=== PATIENT | female | born 1955 | race Caucasian/White ===

== ENCOUNTER 2016-07-23 11:28 | Outpatient (CLI) | payer BC ==
[~2016-07-23] VITALS: Ht 177.8 cm; Wt 81.0 kg
[~2016-07-23 11:28] MED LIST: CALCIUM + D 6001 TA1 PO; CALCIUM600 M1 PO; CARDI-OMEGA1000 MG PO; FASTIN30 MG PO; FOLIC ACID 11 MG/TA1 PO; LIPITOR 40MG TA40 MG PO; METHOTREXA2.5 MG/TAB PO; PRAVACHOL 40MG40 MG PO; PRAVASTATIN20 MG PO; PRILOSEC 20MG20 MG PO; PROBIOTIC FORMU1 CAP PO; REMICADE V100 MG/VIA; REMICADE V100 MG/VIA IV; SAVELLA12.5 MG PO; SYNTHROID 0.0.025 MG PO; SYNTHROID0.05 MG/TA PO; VITAMIN D1000 IU PO
[2016-07-23 12:55] VITALS: BP 155/74; PULSE 79; TEMP 97.9
[2016-07-23 13:25] VITALS: BP 135/98; PULSE 93; TEMP 97.9
[2016-07-23 13:55] VITALS: BP 133/81; PULSE 90; TEMP 98
[2016-07-23 14:25] VITALS: BP 130/65; PULSE 84; TEMP 97.9
[2016-07-23 14:58] VITALS: BP 142/55; PULSE 82
== END 2016-07-23 15:00 | disposition home or self-care (01) ==
LOC: EUO 11:28
DX: M06.89 Other specified rheumatoid arthritis, multiple sites (principal)
CPT/HCPCS: J1745; J7050

== ENCOUNTER → 2016-08-13 | Outpatient (CLI) | payer BC ==
[~2016-08-13] MED LIST changes: +TURMERIC500 MG PO
== END ==
LOC: MC.RAD 13:30
DX: Z12.31 Encounter for screening mammogram for malignant neoplasm of breast (principal); N64.89 Other specified disorders of breast

== ENCOUNTER 2016-09-10 12:01 | Outpatient (CLI) | payer BC ==
[~2016-09-10] VITALS: Ht 177.8 cm; Wt 81.8 kg
[~2016-09-10 12:01] MED LIST changes: -TURMERIC500 MG PO
[2016-09-10] MEDS ORDERED: TURMERIC500 MG PO (12:18)
[2016-09-10 12:30] VITALS: BP 148/88; PULSE 83; TEMP 97.4
[2016-09-10 13:00] VITALS: BP 133/70; PULSE 82; TEMP 97.5
[2016-09-10 13:30] VITALS: BP 140/74; PULSE 75; TEMP 97.8
[2016-09-10 14:00] VITALS: BP 148/83; PULSE 88; TEMP 97.7
[2016-09-10 14:30] VITALS: BP 146/78; PULSE 69; TEMP 97.9
== END 2016-09-10 15:00 | disposition home or self-care (01) ==
LOC: EUO 12:01
DX: M06.89 Other specified rheumatoid arthritis, multiple sites (principal)
CPT/HCPCS: J1745; J7050

== ENCOUNTER → 2016-11-01 | Outpatient (CLI) | payer BC ==
[~2016-11-01] VITALS: Ht 177.8 cm; Wt 81.8 kg
[~2016-11-01] MED LIST changes: +TURMERIC500 MG PO
[2016-11-01 12:54] VITALS: BP 155/97; PULSE 85; TEMP 98
[2016-11-01 13:24] VITALS: BP 165/77; PULSE 82
[2016-11-01 13:40] VITALS: BP 144/72; PULSE 90; TEMP 98.6
[2016-11-01 14:14] VITALS: BP 137/64; PULSE 84; TEMP 97.7
[2016-11-01 15:00] VITALS: BP 145/66; PULSE 78; TEMP 97.3
[2016-11-01 15:22] VITALS: BP 145/66; TEMP 97.4
== END ==
LOC: EUO 12:11
DX: M06.89 Other specified rheumatoid arthritis, multiple sites (principal)
CPT/HCPCS: J1745; J7050

== ENCOUNTER 2016-12-24 09:55 | Outpatient (CLI) | payer BC ==
[~2016-12-24] VITALS: Ht 177.8 cm; Wt 81.8 kg
[2016-12-24 11:27] VITALS: BP 154/80; PULSE 69; TEMP 98
[2016-12-24 11:30] VITALS: BP 182/76; PULSE 72; TEMP 98
[2016-12-24 12:00] VITALS: BP 161/80; PULSE 72; TEMP 98
[2016-12-24 13:00] VITALS: BP 170/75; PULSE 81; TEMP 97.6
== END 2016-12-24 13:10 | disposition home or self-care (01) ==
LOC: EUO 09:55
DX: M06.89 Other specified rheumatoid arthritis, multiple sites (principal); Z79.899 Other long term (current) drug therapy
CPT/HCPCS: J7050

== ENCOUNTER 2017-03-05 09:37 | Outpatient (CLI) | payer BC ==
[~2017-03-05] VITALS: Ht 177.8 cm; Wt 84.1 kg
[2017-03-05 10:18] VITALS: BP 141/74; PULSE 77; TEMP 97.7
[2017-03-05 10:45] VITALS: BP 144/75; PULSE 72; TEMP 97.8
[2017-03-05 11:15] VITALS: BP 147/75; PULSE 75; TEMP 97.8
[2017-03-05 11:45] VITALS: BP 146/71; PULSE 77; TEMP 97.7
[2017-03-05 12:30] VITALS: BP 159/73; PULSE 76; TEMP 97.7
== END 2017-03-05 12:45 | disposition home or self-care (01) ==
LOC: EUO 09:37
DX: M06.89 Other specified rheumatoid arthritis, multiple sites (principal); Z79.899 Other long term (current) drug therapy
CPT/HCPCS: J1745; J7050

== ENCOUNTER 2017-04-24 09:01 | Outpatient (CLI) | payer BC ==
[~2017-04-24] VITALS: Ht 177.8 cm; Wt 87.9 kg
[2017-04-24 09:16] VITALS: BP 149/64; PULSE 87; TEMP 97.3
[2017-04-24 10:10] VITALS: BP 127/64; PULSE 77; TEMP 98.4
[2017-04-24 10:40] VITALS: BP 139/71; PULSE 66; TEMP 97.9
[2017-04-24 11:10] VITALS: BP 149/70; PULSE 75; TEMP 97.4
== END 2017-04-24 12:55 | disposition home or self-care (01) ==
LOC: EUO 09:01
DX: M06.89 Other specified rheumatoid arthritis, multiple sites (principal); Z79.899 Other long term (current) drug therapy
CPT/HCPCS: J1745; J7050

== ENCOUNTER 2017-06-13 11:04 | Outpatient (CLI) | payer BC ==
[~2017-06-13] VITALS: Ht 177.8 cm; Wt 85.9 kg
[2017-06-13 11:29] VITALS: BP 139/70; PULSE 87; TEMP 98.3
[2017-06-13 11:55] VITALS: BP 148/85; PULSE 78; TEMP 98.3
[2017-06-13 12:20] VITALS: BP 145/79; PULSE 79; TEMP 97.6
[2017-06-13 12:50] VITALS: BP 158/93; PULSE 89; TEMP 97.6
[2017-06-13 13:20] VITALS: BP 140/66; PULSE 89; TEMP 97.6
[2017-06-13 13:50] VITALS: BP 151/78; PULSE 88; TEMP 98
== END 2017-06-13 14:08 | disposition home or self-care (01) ==
LOC: EUO 11:04
DX: M06.89 Other specified rheumatoid arthritis, multiple sites (principal); Z79.899 Other long term (current) drug therapy
CPT/HCPCS: J7050

== ENCOUNTER 2017-08-11 12:50 | Outpatient (CLI) | payer BC ==
[~2017-08-11] VITALS: Ht 177.8 cm; Wt 87.5 kg
[~2017-08-11 12:50] MED LIST changes: -CALCIUM + D 6001 TA1 PO; +CALCIUM 600MG+D1 TAB PO
[2017-08-11 14:02] VITALS: BP 151/80; PULSE 88; TEMP 97.9
[2017-08-11] MEDS ORDERED: B-121000 MCG PO (14:02)
[2017-08-11 14:30] VITALS: BP 161/79; PULSE 86; TEMP 98.4
[2017-08-11 15:00] VITALS: BP 141/63; PULSE 85
[2017-08-11 15:30] VITALS: BP 143/73; PULSE 93; TEMP 98.5
[2017-08-11 16:05] VITALS: BP 145/64; PULSE 81; TEMP 97.6
== END 2017-08-11 16:25 | disposition home or self-care (01) ==
LOC: EUO 12:50
DX: M06.89 Other specified rheumatoid arthritis, multiple sites (principal); Z79.899 Other long term (current) drug therapy
CPT/HCPCS: J1745; J7050

== ENCOUNTER → 2017-09-12 | Outpatient (CLI) | payer BC ==
[~2017-09-12] MED LIST changes: +B-121000 MCG PO
== END ==
LOC: MC.RAD 13:34
DX: Z12.31 Encounter for screening mammogram for malignant neoplasm of breast (principal)

== ENCOUNTER 2017-09-29 11:22 | Outpatient (CLI) | payer BC ==
[~2017-09-29] VITALS: Ht 177.8 cm; Wt 81.2 kg
[2017-09-29 11:30] VITALS: BP 143/76; PULSE 82; TEMP 97.5
[2017-09-29 12:40] VITALS: BP 131/76; PULSE 75; TEMP 97.5
[2017-09-29 13:10] VITALS: BP 145/71; PULSE 75; TEMP 97.4
[2017-09-29 13:40] VITALS: BP 150/74; PULSE 78
[2017-09-29 14:10] VITALS: BP 136/60; PULSE 75; TEMP 97.5
[2017-09-29 14:40] VITALS: BP 142/72; PULSE 78; TEMP 97.8
== END 2017-09-29 14:45 | disposition home or self-care (01) ==
LOC: EUO 11:22
DX: M06.9 Rheumatoid arthritis, unspecified (principal)
CPT/HCPCS: J1745; J7050

== ENCOUNTER 2017-12-10 11:29 | Outpatient (CLI) | payer BC ==
[~2017-12-10] VITALS: Ht 177.8 cm; Wt 87.7 kg
[~2017-12-10 11:29] MED LIST changes: -B-121000 MCG PO; +B-121000 MCG SL
[2017-12-10 11:30] VITALS: BP 141/89; PULSE 87; TEMP 98.1
[2017-12-10 12:28] VITALS: BP 141/89; PULSE 87; TEMP 98.1
[2017-12-10 12:45] VITALS: BP 152/84; PULSE 74
[2017-12-10 13:15] VITALS: BP 160/96; PULSE 88; TEMP 98.1
[2017-12-10 13:45] VITALS: BP 157/78; PULSE 80; TEMP 98.4
[2017-12-10 14:30] VITALS: BP 144/81; PULSE 81; TEMP 98.4
== END 2017-12-10 14:35 | disposition home or self-care (01) ==
LOC: EUO 11:29
DX: M06.89 Other specified rheumatoid arthritis, multiple sites (principal)
CPT/HCPCS: J7050

== ENCOUNTER 2018-01-27 12:50 | Outpatient (CLI) | payer BC ==
[~2018-01-27] VITALS: Ht 177.8 cm; Wt 89.0 kg
[2018-01-27 13:35] VITALS: BP 143/77; PULSE 87; TEMP 97.6
[2018-01-27 14:05] VITALS: BP 146/71; PULSE 85; TEMP 98.3
[2018-01-27 14:35] VITALS: BP 146/74; PULSE 97; TEMP 98
[2018-01-27 15:05] VITALS: BP 140/73; PULSE 94; TEMP 97.7
[2018-01-27 15:40] VITALS: BP 151/80; PULSE 88; TEMP 98.2
== END 2018-01-27 15:54 | disposition home or self-care (01) ==
LOC: EUO 12:50
DX: M06.9 Rheumatoid arthritis, unspecified (principal)
CPT/HCPCS: J7050

== ENCOUNTER → 2018-02-27 | Outpatient (CLI) | payer BC ==
[~2018-02-27] VITALS: Ht 177.8 cm; Wt 88.0 kg
== END ==
LOC: SUN.DIA 14:09 → SUN.CLI 14:09
DX: Z71.3 Dietary counseling and surveillance (principal); E66.9 Obesity, unspecified

== ENCOUNTER 2018-03-17 12:59 | Outpatient (CLI) | payer BC ==
[~2018-03-17] VITALS: Ht 177.8 cm; Wt 90.5 kg
[2018-03-17 13:15] VITALS: BP 112/62; PULSE 62; TEMP 98
== END 2018-03-17 13:40 | disposition home or self-care (01) ==
LOC: EUO 12:59
DX: M06.89 Other specified rheumatoid arthritis, multiple sites (principal); Z79.899 Other long term (current) drug therapy
CPT/HCPCS: J1745

== ENCOUNTER 2018-04-07 12:47 | Outpatient (CLI) | payer BC ==
[~2018-04-07] VITALS: Ht 177.8 cm; Wt 89.0 kg
[2018-04-07 13:45] VITALS: BP 140/72; PULSE 66; TEMP 98
== END 2018-04-07 15:42 | disposition home or self-care (01) ==
LOC: EUO 12:47
DX: M06.89 Other specified rheumatoid arthritis, multiple sites (principal); Z79.899 Other long term (current) drug therapy
CPT/HCPCS: J1745; J7050

== ENCOUNTER 2018-09-09 14:03 | Outpatient (CLI) | payer BC ==
[~2018-09-09] VITALS: Ht 177.8 cm; Wt 87.3 kg
[2018-09-09 15:41] VITALS: BP 182/88; PULSE 81; TEMP 97.4
[2018-09-09 16:05] VITALS: BP 162/78; PULSE 80; TEMP 97.4
[2018-09-09 17:05] VITALS: BP 156/78; PULSE 78; TEMP 97.4
[2018-09-09 17:20] VITALS: BP 151/74; PULSE 78; TEMP 97.4
== END 2018-09-09 17:40 | disposition home or self-care (01) ==
LOC: EUO 14:03
DX: M06.89 Other specified rheumatoid arthritis, multiple sites (principal); Z79.899 Other long term (current) drug therapy

== ENCOUNTER → 2018-10-02 | Outpatient (CLI) | payer BC | LOC: MC.RAD 11:40 | DX: Z12.31 Encounter for screening mammogram for malignant neoplasm of breast (principal); N63.10 Unspecified lump in the right breast, unspecified quadrant ==

== ENCOUNTER → 2018-10-08 | Outpatient (CLI) | payer BC | LOC: MC.RAD 13:49 | DX: N63.14 Unspecified lump in the right breast, lower inner quadrant (principal) ==

== ENCOUNTER → 2018-10-13 | Outpatient (CLI) | payer BC | LOC: MC.RAD 09:38 | DX: N63.10 Unspecified lump in the right breast, unspecified quadrant (principal); Z98.82 Breast implant status ==

== ENCOUNTER 2018-10-28 11:13 | Outpatient (CLI) | payer BC ==
[~2018-10-28] VITALS: Ht 177.8 cm; Wt 86.1 kg
[2018-10-28 12:05] VITALS: BP 135/108; PULSE 88; TEMP 97.5
[2018-10-28 12:35] VITALS: BP 145/67; PULSE 93; TEMP 97.5
--- NOTE | 2018-10-28 13:00 | NUR ---
aSSUMED CARE FROM Chad Jensen.
[2018-10-28 13:05] VITALS: BP 134/55; PULSE 98
[2018-10-28 13:18] VITALS: BP 145/116; PULSE 92; TEMP 98
[2018-10-28 13:45] VITALS: BP 131/54; PULSE 90
[2018-10-28 14:15] VITALS: BP 125/50; PULSE 97; TEMP 98.3
== END 2018-10-28 15:27 | disposition home or self-care (01) ==
LOC: EUO 11:13
DX: M06.89 Other specified rheumatoid arthritis, multiple sites (principal); Z79.899 Other long term (current) drug therapy
CPT/HCPCS: J1745; J7050

== ENCOUNTER 2018-12-21 10:50 | Outpatient (CLI) | payer BC ==
[~2018-12-21] VITALS: Ht 177.8 cm; Wt 86.7 kg
[2018-12-21 11:38] VITALS: BP 124/76; PULSE 85; TEMP 98
[2018-12-21 12:00] VITALS: BP 104/89; PULSE 85; TEMP 98.1
[2018-12-21 12:30] VITALS: BP 128/55; PULSE 82
[2018-12-21 13:00] VITALS: BP 132/59; PULSE 86
[2018-12-21 13:30] VITALS: BP 124/58; PULSE 88; TEMP 98.1
[2018-12-21 13:48] VITALS: BP 136/65; PULSE 86; TEMP 98.2
--- NOTE | 2018-12-21 13:48 | NUR ---
Per pt she will be receiving nest infusions in [place] with a new physician.
== END 2018-12-21 13:50 | disposition home or self-care (01) ==
LOC: EUO 10:50
DX: M06.89 Other specified rheumatoid arthritis, multiple sites (principal); Z79.899 Other long term (current) drug therapy
CPT/HCPCS: J1745; J7050

== ENCOUNTER → 2019-11-02 | Outpatient (CLI) | payer BC | LOC: MC.RAD 10-04 13:00 | DX: Z12.31 Encounter for screening mammogram for malignant neoplasm of breast (principal); Z98.82 Breast implant status ==

== ENCOUNTER → 2020-11-02 | Outpatient (CLI) | payer MEDICARE | LOC: MC.RAD 13:11 | DX: Z12.31 Encounter for screening mammogram for malignant neoplasm of breast (principal); N64.9 Disorder of breast, unspecified ==

== ENCOUNTER → 2020-11-07 | Outpatient (CLI) | payer MEDICARE | LOC: MC.RAD 12:55 | DX: N63.41 Unspecified lump in right breast, subareolar (principal); R92.8 Other abnormal and inconclusive findings on diagnostic imaging of breast ==

== ENCOUNTER → 2020-11-21 | Outpatient (CLI) | payer MEDICARE | LOC: MC.RAD 09:54 | DX: N60.01 Solitary cyst of right breast (principal) ==

== ENCOUNTER → 2021-08-07 | Outpatient (CLI) | payer MEDICARE | LOC: COL.VAS 13:54 | DX: M79.89 Other specified soft tissue disorders (principal) ==

== ENCOUNTER → 2021-12-07 | Outpatient (CLI) | payer MEDICARE | LOC: MC.RAD 11-07 13:00 | DX: Z12.31 Encounter for screening mammogram for malignant neoplasm of breast (principal) ==

== ENCOUNTER → 2022-08-19 | Outpatient (CLI) | payer MEDICARE | LOC: COL.RAD 12:57 | DX: M71.21 Synovial cyst of popliteal space [Baker], right knee (principal) ==

== ENCOUNTER → 2024-01-20 | Outpatient (CLI) | payer MEDICARE | LOC: MC.RAD 10:26 | DX: Z12.31 Encounter for screening mammogram for malignant neoplasm of breast (principal) ==